=== PATIENT | male | born 1945 | race Caucasian/White ===

== ENCOUNTER → 2017-12-12 | Day surgery (SDC) | payer OTHER ==
[2017-12-05 10:12] LABS: BASOPHILS # (AUTO) 0.1 (0.0-0.1); BASOPHILS % 0.6 % (0.0-1.0); EOSINOPHILS # (AUTO) 0.1 (0.0-0.4); EOSINOPHILS % 1.2 % (0.0-6.0); HEMOGLOBIN 14.2 g/dL (14.0-18.0); LYMPHOCYTES # (AUTO) 1.8 (1.0-3.2); LYMPHOCYTES % 14.6 % (18.0-39.1); MEAN CORPUSCULAR HEMOGLOBIN 29.1 pg (28-32); MEAN CORPUSCULAR HGB CONC 31.6 g/dL (31-35); MEAN CORPUSCULAR VOLUME 92.2 fL (81-99); MONOCYTES # (AUTO) 0.8 (0.2-0.8); MONOCYTES % 6.7 % (4.4-11.3); NEUTROPHILS # (AUTO) 9.2 (2.1-6.9); NEUTROPHILS % 76.7 % (38.7-80.0); PLATELET COUNT 281 x10e3/uL (140-360); RED BLOOD COUNT 4.88 x10e6/uL (4.3-5.7)
[~2017-12-12] MED LIST: ASPIR 8181 MG PO; ATORVASTATIN PO; CARVEDILOL PO; FENTANYL CITRATE/PF 100MCG/2 ML INJ ONE; FLOMAX0.4 MG PO; LEVEMIR100 UNIT/1 SC; LISINOPRIL PO; MIDAZOLAM HCL 2 MG/2 ML VIAL ONE; MULTI-VITAMIN1 EACH PO; NOVOLOG100 UNIT/1 SC; OMEGA-31000 MG PO; PLAVIX75 MG PO; PROPOFOL IV EMULSION 10 MG/ML 50 ML VIAL ONE; VIT C PO; VIT D3 PO
== END | disposition home or self-care (01) ==
LOC: OR 06:32
PROVIDERS: ATTEND Internal Medicine Gastroenterology
DX: K21.0 Gastro-esophageal reflux disease with esophagitis (principal); K29.70 Gastritis, unspecified, without bleeding; K29.80 Duodenitis without bleeding; K44.9 Diaphragmatic hernia without obstruction or gangrene; K59.09 Other constipation; K64.8 Other hemorrhoids; E11.9 Type 2 diabetes mellitus without complications; I25.2 Old myocardial infarction; I25.10 Atherosclerotic heart disease of native coronary artery without angina pectoris; I11.0 Hypertensive heart disease with heart failure; I50.9 Heart failure, unspecified; Z01.810 Encounter for preprocedural cardiovascular examination; Z01.812 Encounter for preprocedural laboratory examination; Z79.01 Long term (current) use of anticoagulants; Z79.82 Long term (current) use of aspirin; Z79.02 Long term (current) use of antithrombotics/antiplatelets; Z68.30 Body mass index [BMI] 30.0-30.9, adult
CPT/HCPCS: 36415 ×2; 43239; 45378; 82948; 85025; 87102; 87106; 87205; 87206; 88305; 88312; 93005; J2250

== ENCOUNTER → 2019-02-19 | Day surgery (SDC) | payer MEDICARE, OTHER ==
[2019-02-11 14:33] LABS: BASOPHILS # (AUTO) 0.1 (0.0-0.1); BASOPHILS % 0.6 % (0.0-1.0); EOSINOPHILS # (AUTO) 0.4 (0.0-0.4); EOSINOPHILS % 5.5 % (0.0-6.0); HEMATOCRIT 44.6 % (38.2-49.6); HEMOGLOBIN 13.8 g/dL (14.0-18.0); LYMPHOCYTES # (AUTO) 1.6 (1.0-3.2); LYMPHOCYTES % 20.1 % (18.0-39.1); MEAN CORPUSCULAR HEMOGLOBIN 28.2 pg (28-32); MEAN CORPUSCULAR HGB CONC 30.9 g/dL (31-35); MEAN CORPUSCULAR VOLUME 91.2 fL (81-99); MONOCYTES # (AUTO) 0.7 (0.2-0.8); MONOCYTES % 9.1 % (4.4-11.3); NEUTROPHILS % 64.6 % (38.7-80.0); PLATELET COUNT 264 x10e3/uL (140-360); RED BLOOD COUNT 4.89 x10e6/uL (4.3-5.7); RED CELL DISTRIBUTION WIDTH 13.6 % (11.7-14.4)
[~2019-02-19] MED LIST changes: +PANTOPRAZOLE SO40 MG PO
--- OUTSIDE RECORDS SUMMARY | 2019-02-19 06:27 | XMS REPORT | Encounter Summary ---
Author Organization Unknown Address [address] [place] [address] Phone [phone] Care Team Providers Care Keysmith Name Role Phone Dr. Tre Arcos 3 [phone] Shan Jain MD 83 [phone] Benito Alyce 63 [phone] Reason for Visit Type 2 diabetes mellitus; Hyperlipidemia; Hypertensive disorder; diabetic foot exam; AWV Annual Wellness Visit Male (VFP) Instructions 1. Adult health examination 2. Body mass index 30+ - obesity body mass index: care instructions learning about healthy weight 3. Advance directive discussed with patient advance care planning: care instructions 4. Depression screening 5. Type 2 diabetes mellitus diabetic ophthalmology referral microalbumin:creatinine ratio, urine HbA1c (hemoglobin A1c), blood 6. Hypertensive disorder 7. Hyperlipidemia high cholesterol: care instructions CMP, serum or plasma lipid panel, serum 8. Tinea pedis clotrimazole 1 % topical cream 9. Alcohol consumption screening learning about alcohol misuse 10. Immunization 11. Screening for malignant neoplasm of colon colonoscopy referral 12. Senile purpura 13. Congestive heart failure 14. Coronary arteriosclerosis in [place] artery 15. Peripheral vascular disease 16. Screening for malignant neoplasm of prostate PSA, serum or plasma 17. Screening for disorder hepatitis C virus RNA, quant, PCR, serum or plasma 18. Atopic dermatitis triamcinolone acetonide 0.5 % topical ointment 19. Neck pain tizanidine 4 mg tablet Discussion Note: None recorded. Plan of Care Reminders Provider Appointments Est Patient 05/13/2019 9:00AM Tre Barrientos MD Lab Microalbumin:creatinine Ratio, Urine 11/19/2018 [facility] CMP, Serum or Plasma 11/19/2018 [facility] Lipid Panel, Serum 11/19/2018 [facility] HbA1C (Hemoglobin a1C), Blood 11/19/2018 [facility] PSA, Serum or Plasma 11/19/2018 [facility] Hepatitis C Virus RNA, Quant, PCR, Serum or Plasma 11/19/2018 [facility] Referral Diabetic Ophthalmology Referral 11/19/2018 Colonoscopy Referral 11/19/2018 Salazar Apple MD Procedures None recorded. Surgeries None recorded. Imaging None recorded. Medications Name Start Date Aspirin Low Dose 81 mg tablet,delayed release Take 1 tablet every day by oral route. atorvastatin 20 mg tablet Take 1 tablet every day by oral route as directed for 90 days. carvedilol 12.5 mg tablet Take 1 tablet twice a day by oral route as directed for 90 days. clopidogrel 75 mg tablet Take 1 tablet every day by oral route as directed for 90 days. clotrimazole 1 % topical cream APPLY TO THE AFFECTED AND SURROUNDING AREAS OF SKIN BY TOPICAL ROUTE 2 TIMES PER DAY IN THE MORNING AND EVENING FOR 2 WEEKS lancets 30 gauge Use to check blood glucose 3 times a day Levemir FlexTouch U-100 Insulin 100 unit/mL (3 mL) subcutaneous pen Inject 25 units twice a day by sub-q route with meals for 90 days. lisinopril 10 mg tablet Take 1 tablet every day by oral route as directed for 90 days. MegaRed [place]-3 Krill Oil 1 PO QD Multivitamin 50 Plus tablet Take 1 tablet every day by oral route. mupirocin 2 % topical ointment APPLY A SMALL AMOUNT TO THE AFFECTED AREA (ULCER) BY TOPICAL ROUTE 3 TIMES PER DAY FOR 10 DAYS. Novolog Flexpen U-100 Insulin aspart 100 unit/mL subcutaneous Give per sliding scale after checking blood glucose 3 times a day as needed OneTouch Ultra Blue Test Strip Take 1 strip 3 times a day by miscell. route for 90 days. pantoprazole 40 mg tablet,delayed release Take 1 tablet every day by oral route for 90 days. Sure Comfort Pen Needle 31 gauge x 3/16" Use to administer insulin 2 - 5 times a day tamsulosin 0.4 mg capsule Take 1 capsule every day by oral route at bedtime for 90 days. tizanidine 4 mg tablet TAKE 1 TABLET BY MOUTH TWICE DAILY NEEDED triamcinolone acetonide 0.5 % topical ointment APPLY A THIN LAYER TO THE AFFECTED AREA(S) BY TOPICAL ROUTE 2 TIMES PER DAY FOR UP 2 WEEKS Vitamin D3 1,000 unit capsule Take 1 capsule every day by oral route. Medications Administered None recorded. Vitals Height Weight BMI Blood Pressure 5 ft 7 in 195 lbs 30.5 kg/m2 104/60 mm[Hg] Lab Results None recorded. Allergies Code Code System Name Reaction Severity Status Onset 6809 RxNorm Metformin Abdominal Pain Active Problems Name Status Onset Date Source Type 2 Diabetes Mellitus Active 11/10/2017 Hyperlipidemia Active 11/10/2017 Hypertensive Disorder Active 11/10/2017 Coronary Arteriosclerosis in [place] Artery Active 11/10/2017 Benign Prostatic Hyperplasia Active 11/20/2017 Procedures Date Name Performed by 12/12/2017 Egd Information not available 12/12/2017 Colonoscopy Information not available 10/30/2009 Hernia Repair Information not available Vaccine List Vaccine Type Tdap 01/28/2017 zoster 10/30/2015 Social History Smoking Status Never Smoker Past Encounters 11/19/2018 Adult Health Examination; Body Mass Index 30+ - Obesity; Advance Directive Discussed with Patient; Depression Screening; Type 2 Diabetes Mellitus; Hypertensive Disorder; Hyperlipidemia; Tinea Pedis; Alcohol Consumption Screening; Immunization; Screening for Malignant Neoplasm of Colon; Senile Purpura; Congestive Heart Failure; Coronary Arteriosclerosis in [place] Artery; Peripheral Vascular Disease; Screening for Malignant Neoplasm of Prostate; Screening for Disorder; Atopic Dermatitis; Neck Pain Tre Barrientos MD: [address] [place] [address], Ph. History of Present Illness Mini Cog Reported By: Patient Functional Ability: Personal/Social/ Draw a clock and write in the numbers in the correct place, and set the time to 10 minutes after 11 o'clock was completed correctly? Yes, 3 word recall: Your nurse or doctor will ask you to remember 3 words. In 5 minutes, they will ask you to repeat them. Patient recalled 3 words Note:F/u on chronic conditions. Needs refill in meds. Compliant with meds. Non compliant with diet or exercise. BS at home 80s-150s. BPs at home 120s/80s. No side effects with meds. Review of Systems Comprehensive General Adult ROS Reported By: Patient Constitutional: Constitutional: no fever Eyes: Eyes: no vision change ENMT: Ears: no ear pain. Nose: no sinus problems. Mouth/Throat: no sore throat Cardiovascular: Cardiovascular: no chest pain, no shortness of breath when walking, no shortness of breath when lying down, no palpitations, no lightheadedness Respiratory: Respiratory: no cough, no wheezing, no shortness of breath Gastrointestinal: Gastrointestinal: no abdominal pain, no nausea, no vomiting, no constipation, no diarrhea Musculoskeletal: Musculoskeletal: no muscle aches, no swelling in the extremities Integumentary: Skin: rash, itching Neurologic: Neurologic: no loss of consciousness, no headaches Psychiatric: Psych: no depression, no alcohol abuse, no anxiety, no suicidal thoughts Endocrine: Endocrine: no fatigue Physical Exam General Adult Exam (male) Reported By: Patient Constitutional: General Appearance: healthy-appearing, obese. Level of Distress: NAD. Ambulation: ambulating normally Psychiatric: Insight: good judgement. Mental Status: active and alert, normal mood, normal affect. Orientation: to time, to place, to person. Memory: recent memory normal, remote memory normal Eyes: Lids and Conjunctivae: non-injected, no discharge. EOM: EOMI ENMT: Ears: TMs clear. Oropharynx: moist mucous membranes Neck: Neck: trachea midline, pain with motion, tender. Thyroid: no enlargement, non-tender Lungs: Auscultation: breath sounds normal Cardiovascular: Heart Auscultation: RRR, normal S1, normal S2, no murmurs. Neck vessels: no carotid bruits. Pulses including femoral / pedal: normal throughout Abdomen: Inspection and Palpation: soft, non-distended, no tenderness, no guarding Musculoskeletal:: Motor Strength and Tone: normal, normal tone. Joints, Bones, and Muscles: normal movement of all extremities. Extremities: no edema Neurologic: Gait and Station: normal gait. Sensation: grossly intact. Reflexes: DTRs 2+ bilaterally throughout Skin: Inspection and palpation: ; erythematous, scaly lesions in the buttocksErythematous, scaly lesions in the feet
--- OUTSIDE RECORDS SUMMARY | 2019-02-19 06:27 | XMS REPORT | Encounter Summary ---
Author Organization Unknown Address [address] [place] [address] Phone [phone] Care Team Providers Care [employer] Executive Name Role Phone Dr. Tre Arcos 3 [phone] Shan Jain MD 83 [phone] Benito Alyce 63 [phone] Reason for Visit Type 2 diabetes mellitus; [...] Congestive heart failure 14. Coronary arteriosclerosis in [place] artery 15. Peripheral vascular disease 16. Screening [...] Barrientos MD Lab Microalbumin:creatinine Ratio, Urine 11/19/2018 [facility] CMP, Serum or Plasma 11/19/2018 [facility] Lipid Panel, Serum 11/19/2018 [facility] HbA1C (Hemoglobin a1C), Blood 11/19/2018 [facility] PSA, Serum or Plasma 11/19/2018 [facility] Hepatitis C Virus RNA, Quant, PCR, Serum or Plasma 11/19/2018 [facility] Referral Diabetic Ophthalmology Referral 11/19/2018 [...] route as directed for 90 days. MegaRed [place]-3 Krill Oil 1 PO QD Multivitamin 50 [...] TAKE 1 TABLET BY MOUTH TWICE DAILY FOR 14 DAYS NEEDED triamcinolone acetonide 0.5 % topical ointment [...] Hypertensive Disorder Active 11/10/2017 Coronary Arteriosclerosis in [place] Artery Active 11/10/2017 Benign Prostatic Hyperplasia Active [...] Purpura; Congestive Heart Failure; Coronary Arteriosclerosis in [place] Artery; Peripheral Vascular Disease; Screening for Malignant Neoplasm of Prostate; Screening for Disorder; Atopic Dermatitis; Neck Pain Tre Barrientos MD: [address] [place] [address], Ph. History of Present Illness Mini Cog [...]
[2019-02-19 11:00] VITALS: BP 127/74
== END | disposition home or self-care (01) ==
LOC: OR 06:25
PROVIDERS: ATTEND Internal Medicine Gastroenterology
DX: Z12.11 Encounter for screening for malignant neoplasm of colon (principal); K57.30 Diverticulosis of large intestine without perforation or abscess without bleeding; K59.00 Constipation, unspecified; K64.8 Other hemorrhoids; K21.0 Gastro-esophageal reflux disease with esophagitis; I10 Essential (primary) hypertension; E11.9 Type 2 diabetes mellitus without complications; I25.10 Atherosclerotic heart disease of native coronary artery without angina pectoris; I25.2 Old myocardial infarction; E78.6 Lipoprotein deficiency; N40.0 Benign prostatic hyperplasia without lower urinary tract symptoms; Z88.8 Allergy status to other drugs, medicaments and biological substances; Z01.810 Encounter for preprocedural cardiovascular examination; Z01.812 Encounter for preprocedural laboratory examination; Z79.02 Long term (current) use of antithrombotics/antiplatelets; Z79.82 Long term (current) use of aspirin; Z79.4 Long term (current) use of insulin; Z68.30 Body mass index [BMI] 30.0-30.9, adult
CPT/HCPCS: 36415 ×2; 82948; 85025; 93005; G0121; J2250; J2704; 45378